=== PATIENT | male | born 1975 | race Caucasian/White ===

== ENCOUNTER 2016-12-15 22:43 | Emergency (ER) | payer SELFPAY ==
[~2016-12-15 22:43] MED LIST: AFRIN3 ML; AUGMENTIN; NO MEDICATIONS; TESSALON200 MG; ULTRAM PO
== END 2016-12-15 22:44 | disposition home or self-care (01) ==
LOC: SED 22:43
DX: F11.129 Opioid abuse with intoxication, unspecified (principal); F17.210 Nicotine dependence, cigarettes, uncomplicated
CPT/HCPCS: 99282

== ENCOUNTER 2017-04-03 01:35 | Emergency (ER) | payer SELFPAY | END 2017-04-03 02:35 | disposition home or self-care (01) | LOC: SED 01:35 | DX: T40.1X1A Poisoning by heroin, accidental (unintentional), initial encounter (principal); F17.210 Nicotine dependence, cigarettes, uncomplicated; R56.9 Unspecified convulsions; Z23 Encounter for immunization | CPT/HCPCS: 90471; 90715; 99284 ==